=== PATIENT | female | born 1945 | race Caucasian/White ===

== ENCOUNTER 2020-03-21 08:09 | Day surgery (SDC) | payer MEDICARE, SELFPAY ==
[2020-03-21] VITALS (10 sets, daily range): BP systolic 119–157; BP diastolic 58–69; PULSE 60; RESP 16; TEMP 36.6; O2SAT 92–100; BMI 34.1
--- NOTE | 2020-03-21 | IR_ITS ---
APPROVED REPORT Patient Location: Outpatient [facility]: MARSHA Junior RT (R) PROCEDURES Pocket Revision Removal of old Pacemaker Implant of Permanent Pacemaker INDICATION Sinus Bradycardia, End of battery life Informed consent was obtained prior to the procedure. COMPLICATIONS None Estimated Blood Loss: Less than 10 mls TECHNIQUE 1% lidocaine with epinephrine used to anesthetize the left anterior aspect of the chest. Scalpel was used to make the initial cutaneous incision and then used to dissect down to the existing pacemaker generator. The generator was removed from the existing pocket. Digital manipulation was required along with intermittent usage of scalpel in order to revise the pocket. The leads were removed from the old generator. The new generator was screwed to the existing leads and secured into place. Electronic interrogation proved acceptable thresholds and voltage within the lead. Antibiotics were used to flush the pocket and the pacemaker was secured using 3-0 silk into the newly revised pocket. Monocryl was used to close the subcutaneous tissue and then avery were placed on the cutaneous area in order to approximate the incision. Patient was transferred to the postop holding area in stable condition. IMPRESSION Explanted Generator Model: [employer], 2210 Explanted Generator Serial No: [id number] Implanted Generator Model: ACCOLADE MRI ISJoselito1, L311 Implanted Generator Serial No: [id number] RA Lead Model: Optisense IS-1 Bi Positive Fix, 1699TC RA Lead Serial No: [id number] RV Lead Model: Tendril ST Optim IS-1 Bi Positive Fix Steroid, 1888TC RA Lead Serial No: [id number] Parameters: Mode: DDDR RYTHMIQ: AAIR with VVI Backup Base/Max: 60/130ppm Successful Pocket Revision Successful Removal of old Pacemaker Successful Implant of Permanent Pacemaker PLAN 1. Post op wound care Electronically signed by : De Higuera, 03/21/2020 13:22:11
[2020-03-21 09:08] LABS: Chloride 103 mmol/L (98-107); Potassium 3.6 mmoL/L (3.5-5.1); Sodium 138 mmol/L (136-145)
[2020-03-21 09:11] LABS: Anion Gap 14.6 mEq/L (5-15); Basophils % 0.4 % (0.1-2.0); Blood Urea Nitrogen 11 mg/dl (7-17); Carbon Dioxide 24 mmol/L (22.0-30.0); Creatinine Clearance Estimated 68 mL/min (50-200); Eosinophils % 0.2 % (0.1-12.0); Estimated Glomerular Filt Rate 120 ml/min (>60); GFR (African American) 145 ML/MIN (>60); Hematocrit 33.5 % (37.0-47.0); Hemoglobin 11.4 g/dL (12.2-16.2); Lymphocytes # 2.1 K/mm3 (0.7-4.5); Lymphocytes % 19.9 % (10-50); Mean Corpuscular HGB Conc 33.9 g/dL (31.8-35.4); Mean Corpuscular Volume 88.3 fl (81-99); Mean Platelet Volume 7.3 fl (7.4-10.4); Monocytes # 1.1 K/mm3 (0.1-1.0); Monocytes % 10.1 % (1.7-9.3); Neutrophils # 7.3 K/mm3 (1.8-7.8); Neutrophils % 69.5 % (37.0-80.0); Platelet Count 264 K/mm3 (142-424); Red Blood Count 3.79 M/mm3 (4.20-5.40); White Blood Count 10.5 K/mm3 (4.8-10.8)
[2020-03-21 09:12] LABS: Calcium 9.5 mg/dl (8.4-10.2); Glucose 136 mg/dl (74-100)
[2020-03-21 09:34] LABS: Coronavirus 19 IgG Antibody Negative (Negative); Coronavirus 19 IgM Antibody Negative (Negative)
[2020-03-21 09:54] LABS: INR 1.54 (0.9-1.1); Prothrombin Time 15.5 seconds (9.4-11.8)
== END 2020-03-21 13:13 | disposition home or self-care (01) ==
LOC: CATHLAB 08:11
PROVIDERS: PCP Family Medicine; Visit Provider Internal Medicine
DX: Z45.010 Encounter for checking and testing of cardiac pacemaker pulse generator [battery] (principal); I48.91 Unspecified atrial fibrillation; I25.10 Atherosclerotic heart disease of native coronary artery without angina pectoris; E03.9 Hypothyroidism, unspecified; I10 Essential (primary) hypertension; E78.5 Hyperlipidemia, unspecified; Z79.01 Long term (current) use of anticoagulants; Z79.899 Other long term (current) drug therapy; Z88.8 Allergy status to other drugs, medicaments and biological substances
CPT/HCPCS: 33228; 80048; 85025; 85610; 86328; 99152; C1785